=== PATIENT | male | born 1990 | race American Indian/Alaskan Native ===

== ENCOUNTER 2017-07-28 11:16 | Emergency (ER) | payer BC, OTHER ==
[2017-07-28 11:33] VITALS: BMI 36.7
[2017-07-28 11:38] VITALS: RESP 20; O2SAT 98
[2017-07-28 12:10] LABS: SQUAMOUS EPITHIAL 1 /hpf (0-5); URINE BILIRUBIN NEGATIVE (NEGATIVE); URINE BLOOD NEGATIVE (NEGATIVE); URINE CLARITY Clear (Clear); URINE COLOR Yellow (YELLOW); URINE GLUCOSE (UA) NORMAL (Normal); URINE LEUKOCYTE ESTERASE NEG Leu/uL (Negative); URINE NITRATE NEGATIVE (NEGATIVE); URINE PROTEIN NEGATIVE (NEGATIVE); URINE UROBILINOGEN NORMAL mg/dL (0.2-1.0)
[2017-07-28] MEDS ORDERED: Sodium Chloride 0.9% 1,000 ML IV ONE (12:13)
--- NOTE | 2017-07-28 12:15 | C.PDOC ---
History Of Present Illness 26 y/o male presents to ED with complaints of having a "stomach virus or flu". Patient states he started having symptoms of vomiting and diarrhea that began this morning at 4AM. Associated symptoms are bodyaches and lower back discomfort. Denies urinary symptoms, past medical problems or previous surgeries. Time Seen by Provider: 07/28/17 11:44 Chief Complaint (Nursing): Abdominal Pain History Per: Patient History/Exam Limitations: no limitations Onset/Duration Of Symptoms: Hrs Current Symptoms Are (Timing): Still Present Radiation Of Pain To:: Back (lower) Quality Of Discomfort: Unable To Describe Associated Symptoms: Vomiting, Diarrhea. denies: Fever, Chills, Urinary Symptoms Exacerbating Factors: None Alleviating Factors: None Recent travel outside of the [place]: No Past Medical History Reviewed: Historical Data, Nursing Documentation, Vital Signs Vital Signs: Last Vital Signs Temp 98 F 07/28/17 11:34 Pulse 90 07/28/17 11:34 Resp 20 07/28/17 11:34 BP 121/61 07/28/17 11:34 Pulse Ox 98 07/28/17 12:58 - Medical History PMH: No Chronic Diseases - [employer] Procedures INJECT/INFUSE NEC (07/06/14) Family History: States: Unknown Family Hx - Social History Hx Alcohol Use: No Hx Substance Use: No - Immunization History Hx Tetanus Toxoid Vaccination: No Hx Influenza Vaccination: No Hx Pneumococcal Vaccination: No Review Of Systems Constitutional: Negative for: Fever, Chills Gastrointestinal: Positive for: Vomiting, Diarrhea Genitourinary: Negative for: Dysuria, Frequency, Incontinence, Hematuria Musculoskeletal: Positive for: Other (bodyaches and lower back disomfort) Neurological: Negative for: Weakness, Numbness Physical Exam - Physical Exam Appears: Well, Non-toxic, No Acute Distress Skin: Normal Color, Warm, Dry, No Rash Head: Atraumatic, Normacephalic Eye(s): bilateral: Normal Inspection, PERRL, EOMI Oral Mucosa: Moist Throat: No Erythema, No Exudate Neck: Normal ROM, Supple Chest: Symmetrical, No Tenderness Cardiovascular: Rhythm Regular, No Friction Rub, No Murmur Respiratory: Normal Breath Sounds, No Decreased Breath Sounds, No Rales, No Rhonchi, No Wheezing Gastrointestinal/Abdominal: Bowel Sounds (active), Soft, No Tenderness, No Distention, No Guarding, No Rebound Back: Normal Inspection, No CVA Tenderness Extremity: Normal ROM, No Swelling Neurological/Psych: Oriented x3, Normal Speech, Normal Cognition, Normal Motor Gait: Steady ED Course And Treatment - Laboratory Results Result Diagrams: 07/28/17 12:20 07/28/17 12:20 O2 Sat by Pulse Oximetry: 98 (RA) Pulse Ox Interpretation: Normal - Other Rad Chest X-Ray X-Ray: Viewed By Me, Read By Radiologist Interpretation: Chest x-ray single frontal view. History: Abdominal pain. Comparison: None available. Findings: No focal infiltrate or effusion. Heart size within normal limits. Impression: No focal infiltrate or effusion. Progress Note: On re-exam, the patient reports improvement of symptoms. Lungs are CTA, heart is RRR, abdomen is soft, non-tender and tolerating PO well. Ambulatory in the ED with steady gait. Follow up with the medical doctor within 1-2 days. Return if worsened. Medical Decision Making Medical Decision Making: Ordered blood work, CXR, and urinalysis. Administered IV fluids, Zofran and pepcid. On re-exam, the patient reports improvement of symptoms. Lungs are CTA, heart is RRR, abdomen is soft, non-tender and tolerating PO well. Ambulatory in the ED with steady gait. Follow up with the medical doctor within 1-2 days. Return if worsened. Disposition Counseled Patient/Family Regarding: Studies Performed, Diagnosis, Rx Given - Disposition Referrals: [facility] [Outside] Disposition: HOME/ ROUTINE Disposition Time: 14:00 Condition: GOOD Additional Instructions: Follow up with the medical doctor within 1-2 days. Return if worsened. 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 - Scribe Statement The provider has reviewed the documentation as recorded by the Mely Bowers All medical record entries made by the Scribroyce were at my direction and personally dictated by me. I have reviewed the chart and agree that the record accurately reflects my personal performance of the history, physical exam, medical decision making, and the department course for this patient. I have also personally directed, reviewed, and agree with the discharge instructions and disposition.
[2017-07-28] MEDS ORDERED: Sodium Chloride 0.9% 1,000 ML ONE (12:22)
[2017-07-28 12:23] LABS: BASO # 0.1 K/uL (0.0-0.2); BASO % 0.6 % (0.0-2.0); EOS % 0.1 % (0.0-4.0); HEMOGLOBIN 14.5 g/dL (12.0-18.0); LYMPH # 0.3 K/uL (1.0-4.3); LYMPH % 3.3 % (20.0-40.0); MEAN CORPUSCULAR HGB CONC 33.3 g/dL (33.0-37.0); MEAN PLATELET VOLUME 9.3 fL (7.2-11.7); MONO # 0.3 K/uL (0.0-0.8); MONO % 2.9 % (0.0-10.0); NEUT # 9.5 K/uL (1.8-7.0); NEUT % 93.1 % (50.0-75.0); PLATELET COUNT 208 K/uL (130-400); RBC 5.37 Mil/uL (4.40-5.90); RED CELL DISTRIBUTION WIDTH 13.8 % (11.5-14.5); WHITE BLOOD COUNT 10.2 K/uL (4.8-10.8)
[2017-07-28 12:35] LABS: ALB/GLOB RATIO 1.2 (1.0-2.1); ALBUMIN 4.2 g/dL (3.5-5.0); ALT/SGPT 35 U/L (21-72); AST/SGOT 29 U/L (17-59); BLOOD UREA NITROGEN 12 mg/dL (9-20); CALCIUM 8.8 mg/dl (8.6-10.4); GFR AFRICAN-AMERICAN > 60; GFR NON-AFRICAN AMERICAN > 60; LIPASE 34 U/L (23-300)
--- NOTE | 2017-07-28 12:40 | RAD ---
Chest x-ray single frontal view History: Abdominal pain. Comparison: None available. Findings: No focal infiltrate or effusion. Heart size within normal limits. Impression: No focal infiltrate or effusion.
[2017-07-28 12:45] LABS: ANISOCYTOSIS SLIGHT; BANDS 2 % (0-2); LYMPHOCYTE 3 % (20-40); MONOCYTE 4 % (0-10); NEUTROPHIL 91 % (50-75); PLATELET ESTIMATE NORMAL (NORMAL); POLYCHROMIC SLIGHT; TOTAL CELLS COUNTED 100
[2017-07-28 12:46] LABS: LARGE PLATELETS PRESENT
[2017-07-28 14:34] VITALS: BP 112/70; PULSE 85; TEMP 98.9
== END 2017-07-28 14:34 | disposition home or self-care (01) ==
LOC: C.ER 11:16
DX: B34.9 Viral infection, unspecified (principal); R19.7 Diarrhea, unspecified; R11.10 Vomiting, unspecified
CPT/HCPCS: 71045; 80053; 81001; 83690; 85025; 96361; 96374; 96375; 99284; J2405; J7040

== ENCOUNTER 2017-10-21 13:20 | Emergency (ER) | payer BC ==
[2017-10-21 13:30] VITALS: BMI 36.5
[2017-10-21 13:31] VITALS: PULSE 96; RESP 18; TEMP 97.4; O2SAT 97
--- NOTE | 2017-10-21 14:13 | C.PDOC ---
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 UNABLE TO WT BEAR. CO SWELLING DENIES OTHER ASSOC INJURY EXAM NAD EXT R ANKLE +SWLEL LAT MALL W GEN TEND. AROM WO PAIN. NO GROSS DEFORM GAIT NO WT BEAR SKIN INTACT Time Seen by Provider: 10/21/17 13:56 Chief Complaint (Nursing): Lower Extremity Problem/Injury Past Medical History Vital Signs: Last Vital Signs Temp 97.4 F L 10/21/17 13:30 Pulse 96 H 10/21/17 13:30 Resp 18 10/21/17 13:30 BP Pulse Ox 97 10/21/17 14:44 - [facility] Procedures INJECT/INFUSE NEC (07/06/14) Family History: States: Unknown Family Hx - Social History Hx Alcohol Use: No Hx Substance Use: No - Immunization History Hx Tetanus Toxoid Vaccination: No Hx Influenza Vaccination: No Hx Pneumococcal Vaccination: No ED Course And Treatment O2 Sat by Pulse Oximetry: 97 Disposition Counseled Patient/Family Regarding: Studies Performed, Diagnosis, Need For Followup, Rx Given - Disposition Referrals: Mile Mcnamara DPM [Staff Provider] - Disposition: HOME/ ROUTINE Disposition Time: 14:43 Condition: IMPROVED Prescriptions: Ibuprofen [Motrin] 600 mg PO Q6 #30 tab Instructions: Ankle Sprain (DC) Forms: [facility] (Telugu), Work Excuse - Clinical Impression Clinical Impression: Ankle sprain Orthopedic Care Application Of:: Ankle Air Cast - Ambulation Aids Ambulation Aids: Adult Crutches
--- NOTE | 2017-10-21 14:25 | RAD ---
PROCEDURE: Right Ankle Radiographs. HISTORY: TRAUMA COMPARISON: None FINDINGS: BONES: Normal. No fracture. JOINTS: Normal. No osteoarthritis. Ankle mortise maintained. Talar dome intact SOFT TISSUES: Lateral soft tissue swelling. OTHER FINDINGS: None. IMPRESSION: No fracture/ dislocation. Lateral soft tissue swelling noted.
--- NOTE | 2017-10-21 14:25 | RAD ---
PROCEDURE: Right Foot Radiographs. HISTORY: trauma COMPARISON: None. FINDINGS: BONES: Normal. No fracture. JOINTS: Normal. SOFT TISSUES: Normal. OTHER FINDINGS: None. IMPRESSION: Normal right foot radiographs.
== END 2017-10-21 15:15 | disposition home or self-care (01) ==
LOC: C.ER 13:20
DX: S93.401A Sprain of unspecified ligament of right ankle, initial encounter (principal); X50.1XXA Overexertion from prolonged static or awkward postures, initial encounter; Y93.67 Activity, basketball
CPT/HCPCS: 73610; 73630; 97116; 97161; 99284; G8978; G8979; G8980

== ENCOUNTER 2017-10-25 10:23 | Emergency (ER) | payer BC ==
[2017-10-25 10:24] VITALS: BMI 36.5
[2017-10-25 10:31] VITALS: BP 139/77; PULSE 97; RESP 20; TEMP 97.8; O2SAT 97
--- NOTE | 2017-10-25 10:50 | C.PDOC ---
Time Seen by Provider: 10/25/17 10:43 Chief Complaint (Nursing): Lower Extremity Problem/Injury Past Medical History Vital Signs: Last Vital Signs Temp 97.8 F 10/25/17 10:30 Pulse 97 H 10/25/17 10:30 Resp 20 10/25/17 10:30 BP 139/77 10/25/17 10:30 Pulse Ox 97 10/25/17 10:30 - [facility] Procedures INJECT/INFUSE NEC (07/06/14) Family History: States: Unknown Family Hx - Social History Hx Alcohol Use: No Hx Substance Use: No - Immunization History Hx Tetanus Toxoid Vaccination: No Hx Influenza Vaccination: No Hx Pneumococcal Vaccination: No ED Course And Treatment O2 Sat by Pulse Oximetry: 97 Disposition Counseled Patient/Family Regarding: Diagnosis, Need For Followup - Disposition Referrals: [facility] [Outside] [facility] [Outside] Disposition: HOME/ ROUTINE Condition: GOOD Forms: [facility] (Hong Konger), General Discharge Instructions - Clinical Impression Clinical Impression: Encounter to obtain excuse from work
--- NOTE | 2017-10-25 10:52 | C.PDOC ---
History Of Present Illness 27-year-old male, presents to the emergency department requesting work note. He was seen in ER on 10/21 for ankle injury. Patient had negative XR's of foot and ankle. He was given a work excuse for three days, and returns today requesting additional days off. Patient was advised that the ER does not issue retroactive work notes, upon which patient started kicking material and objects in ER. He was noted to walk without difficulty. Patient states "fuck you, bitch. Go back to your country, suck my christopher." No other complaints. Time Seen by Provider: 10/25/17 10:43 Chief Complaint (Nursing): Lower Extremity Problem/Injury History Per: Patient History/Exam Limitations: no limitations Past Medical History Reviewed: Historical Data, Nursing Documentation, Vital Signs Vital Signs: Last Vital Signs Temp 97.8 F 10/25/17 10:30 Pulse 97 H 10/25/17 10:30 Resp 20 10/25/17 10:30 BP 139/77 10/25/17 10:30 Pulse Ox 97 10/25/17 11:02 - [employer] Procedures INJECT/INFUSE NEC (07/06/14) Family History: States: No Known Family Hx - Social History Hx Alcohol Use: No Hx Substance Use: No - Immunization History Hx Tetanus Toxoid Vaccination: No Hx Influenza Vaccination: No Hx Pneumococcal Vaccination: No Review Of Systems Constitutional: Positive for: Other (requesting work note.) Physical Exam - Physical Exam Appears: Non-toxic, No Acute Distress, Other (Beligerint.) Neurological/Psych: Oriented x3, Normal Speech Gait: Steady (without difficulty) ED Course And Treatment O2 Sat by Pulse Oximetry: 97 (RA) Pulse Ox Interpretation: Normal Medical Decision Making Medical Decision Making: Prior Visits Notes and records from previous visits were reviewed. Patient evaluated in ED on 10/21 s/p ankle injury. Had negative XR's. was discharged with work note. Disposition Counseled Patient/Family Regarding: Studies Performed, Diagnosis - Disposition Referrals: [facility] [Outside] [facility] [Outside] Disposition: HOME/ ROUTINE Disposition Time: 10:55 Condition: GOOD Forms: General Discharge Instructions, [facility] (Mauritian) - Clinical Impression Clinical Impression: Encounter to obtain excuse from work - Scribe Statement The provider has reviewed the documentation as recorded by the Scribe (Whit Carcamo) All medical record entries made by the Scribe were at my direction and personally dictated by me. I have reviewed the chart and agree that the record accurately reflects my personal performance of the history, physical exam, medical decision making, and the department course for this patient. I have also personally directed, reviewed, and agree with the discharge instructions and disposition.
== END 2017-10-25 10:55 | disposition home or self-care (01) ==
LOC: C.ER 10:23
DX: Z04.8 Encounter for examination and observation for other specified reasons (principal)

== ENCOUNTER 2018-02-06 23:44 | Emergency (ER) | payer BC ==
[2018-02-06 23:45] VITALS: BMI 36.5
[2018-02-07] MEDS ORDERED: Sodium Chloride 0.9% 1,000 ML IV STA (00:37)
[2018-02-07 00:48] LABS: BASO # 0.1 K/uL (0.0-0.2); BASO % 0.7 % (0.0-2.0); EOS # 0.1 K/uL (0.0-0.7); EOS % 0.8 % (0.0-4.0); HEMOGLOBIN 13.2 g/dL (12.0-18.0); LYMPH # 2.2 K/uL (1.0-4.3); LYMPH % 25.3 % (20.0-40.0); MEAN CELL VOLUME 80.4 fL (80.0-94.0); MEAN CORPUSCULAR HGB CONC 33.6 g/dL (33.0-37.0); MEAN PLATELET VOLUME 8.7 fL (7.2-11.7); MONO # 0.4 K/uL (0.0-0.8); MONO % 4.9 % (0.0-10.0); NEUT # 5.9 K/uL (1.8-7.0); NEUT % 68.3 % (50.0-75.0); RBC 4.89 Mil/uL (4.40-5.90); WHITE BLOOD COUNT 8.6 K/uL (4.8-10.8)
[2018-02-07] MEDS ORDERED: Sodium Chloride 0.9% 1,000 ML ONE (00:48)
[2018-02-07 01:20] LABS: ALB/GLOB RATIO 1.5 (1.0-2.1); ALBUMIN 4.3 g/dL (3.5-5.0); ALT/SGPT 33 U/L (21-72); AST/SGOT 21 U/L (17-59); BLOOD UREA NITROGEN 15 mg/dL (9-20); CALCIUM 9.4 mg/dl (8.6-10.4); GFR AFRICAN-AMERICAN > 60; GFR NON-AFRICAN AMERICAN > 60
[2018-02-07] MEDS ORDERED: Iodixanol 320 MG/ML 100 ML BOTTLE IV ONE (01:49)
--- NOTE | 2018-02-07 02:52 | C.PDOC ---
History Of Present Illness 27 year old male presents to the ED for evaluation of right-sided throat pain which began around one month ago. Patient reports he has pain with swallowing and even with movement of his tongue. When asked where his pain is, patient points to the right side of his neck. Patient denies fever, chills, ear pain, throat swelling, difficulty swallowing/breathing. Time Seen by Provider: 02/07/18 00:34 Chief Complaint (Nursing): ENT Problem History Per: Patient History/Exam Limitations: None Onset/Duration Of Symptoms: Days (1 month ) Current Symptoms Are (Timing): Still Present Past Medical History Reviewed: Historical Data, Nursing Documentation, Vital Signs Vital Signs: Last Vital Signs Temp 97.7 F 02/07/18 02:55 Pulse 69 02/07/18 02:55 Resp 18 02/07/18 02:55 BP 114/70 02/07/18 02:55 Pulse Ox 97 02/07/18 03:29 - Medical History PMH: No Chronic Diseases Surgical History: No Surg Hx - [facility] Procedures INJECT/INFUSE NEC (07/06/14) Family History: States: Unknown Family Hx - Social History Hx Alcohol Use: No Hx Substance Use: No - Immunization History Hx Tetanus Toxoid Vaccination: No Hx Influenza Vaccination: No Hx Pneumococcal Vaccination: No Review Of Systems Constitutional: Negative for: Fever, Chills ENT: Positive for: Throat Pain (right-sided). Negative for: Ear Pain, Throat Swelling Physical Exam - Physical Exam Appears: Non-toxic, No Acute Distress Skin: Normal Color, Warm, Dry Head: Atraumatic, Normacephalic Eye(s): bilateral: Normal Inspection Ear(s): Bilateral: Normal Nose: Normal, No Discharge Oral Mucosa: Moist Throat: Normal, No Erythema, No Exudate, No Drooling, No Other (swelling ) Neck: Supple, Other (right-sided neck tenderness ) Chest: Symmetrical, No Deformity, No Tenderness Cardiovascular: Rhythm Regular, No Murmur Respiratory: Normal Breath Sounds, No Rales, No Rhonchi, No Wheezing Extremity: Normal ROM Neurological/Psych: Oriented x3, No Normal Speech (limited tongue movement secondary to pain ), Normal Cognition ED Course And Treatment - Laboratory Results Result Diagrams: 02/07/18 00:45 02/07/18 00:45 O2 Sat by Pulse Oximetry: 97 (on RA) Pulse Ox Interpretation: Normal - CT Scan/US CT Neck Soft Tissue Other Rad Studies (CT/US): Read By Radiologist, Radiology Report Reviewed CT/US Interpretation: EXAM: CT Neck With Intravenous Contrast. CLINICAL HISTORY : 27 years old, male; Pain and signs and symptoms; Dysphagia / difficulty. swallowing and other: Right side pain and swelling; Painful swallowing; Additional info: Right anterior. neck pain, difficulty swallow. TECHNIQUE: Axial computed tomography images of the neck with intravenous contrast. All CT. scans at this facility use at least one of these dose optimization techniques : automated exposure. control; mA and/or kV adjustment per patient size ( includes targeted exams where dose is matched to. clinical indication); or iterative reconstruction. Coronal and sagittal reformatted images were created. and reviewed. COMPARISON: No relevant prior studies available. FINDINGS: Oropharynx: The palatine tonsils are mildly prominent in size. No peritonsillar abscess. Hypopharynx: Unremarkable. Larynx: Unremarkable. Normal epiglottis. Trachea: Unremarkable. Retropharyngeal space: Unremarkable. Submandibular/ parotid glands: Unremarkable. Glands are normal in size. Thyroid: Unremarkable. No enlarged or calcified nodules. Bones/joints: No acute fracture. Soft tissues: Unremarkable. Vasculature: No acute findings. Lymph nodes: There are few mildly prominent anterior cervical chain lymph nodes which may be. reactive nodes. Lung apices: Unremarkable as visualized. IMPRESSION: 1. The palatine tonsils are mildly prominent in size. No peritonsillar abscess. 2. There are few mildly prominent anterior cervical chain lymph nodes which may be reactive nodes. Progress Note: Bloodwork and CT Neck Soft Tissue ordered and reviewed. Toradol IVP and IV Fluids given. Disposition - Disposition Referrals: Gorge Giron MD [Staff Provider] - Disposition: HOME/ ROUTINE Disposition Time: 03:26 Condition: STABLE Additional Instructions: Follow up with PMD and Orthopedist within 1-2 days. Return to ED if feel worse. 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 - Scribe Statement The provider has reviewed the documentation as recorded by the Scribe (Grace Medeiros) All medical record entries made by the Scribe were at my direction and personally dictated by me. I have reviewed the chart and agree that the record accurately reflects my personal performance of the history, physical exam, medical decision making, and the department course for this patient. I have also personally directed, reviewed, and agree with the discharge instructions and disposition.
[2018-02-07 02:55] VITALS: BP 114/70; PULSE 69; RESP 18; TEMP 97.7
[2018-02-07] MEDS ORDERED: Amoxicillin-Clav 875-125 mg Tab PO STA (03:08)
[2018-02-07] MEDS ORDERED: Amoxicillin-Clav 875-125 mg Tab PO ONE (03:19)
[2018-02-07 03:29] VITALS: O2SAT 97
--- NOTE | 2018-02-07 09:21 | CT ---
Date of service: 02/07/2018 PROCEDURE: CT NECK WITH CONTRAST HISTORY: right anterior neck pain, difficulty swallow COMPARISON: None available. TECHNIQUE: CT of the neck with intravenous contrast. Coronal and sagittal reformats generated. Intravenous contrast dose: 100 mL Visipaque Radiation dose: DLP 522.44 mGy-cm This CT exam was performed using one or more of the following dose reduction techniques: Automated exposure control, adjustment of the mA and/or kV according to patient size, and/or use of iterative reconstruction technique. FINDINGS: NASOPHARYNX: There is moderate adenoidal hypertrophy with mild narrowing of the nasopharyngeal airway. SUPRAHYOID NECK: There are bilateral enlarged palatine tonsils. No evidence for peritonsillar abscess. There is no mass or abnormal enhancement in the oropharynx, oral cavity, parapharyngeal space and retropharyngeal space. INFRAHYOID NECK: Unremarkable larynx, hypopharynx, and supraglottic space. Vocal cords intact. MASS: None. GLANDS: Parotid and submandibular glands unremarkable. Normal size thyroid gland, without nodule. LYMPH NODES: Mildly enlarged right cervical chain lymph nodes, likely reactive. CERVICAL SPINE: No fracture or focal lesion. Within normal limits for the patient's age. VASCULAR STRUCTURES: There is normal intravascular enhancement. OTHER FINDINGS: None. IMPRESSION: Findings are most compatible with acute palatine tonsillitis. No evidence for peritonsillar abscess. Moderate adenoidal hypertrophy with mild narrowing of the nasopharyngeal airway. A preliminary report was provided by [employer].
== END 2018-02-07 03:46 | disposition home or self-care (01) ==
LOC: C.ER 23:44
DX: J02.9 Acute pharyngitis, unspecified (principal); I88.9 Nonspecific lymphadenitis, unspecified
CPT/HCPCS: 70491; 80053; 85025; 96361; 96374; 96375; 99284; J1100; J1885; J7030; Q9967

== ENCOUNTER 2018-06-28 19:50 | Emergency (ER) | payer BC ==
[2018-06-28 19:51] VITALS: BMI 36.5
[2018-06-28 20:06] VITALS: BP 120/73; PULSE 92; TEMP 98.3; O2SAT 97
--- NOTE | 2018-06-28 20:36 | C.PDOC ---
History Of Present Illness 27 y/o male c/o body aches, chills, nausea, vomiting and diarrhea today with fatigue, and generalized weakness. +sick contact; 3 y/o daughter with similar symptoms now resolved. no flu vaccine. HPI: Influenza Time Seen by Provider: 06/28/18 20:09 Chief Complaint: Flu-like Symptoms History Per: Patient Exam Limitations: no limitations Have you had recent travel within the past 21 days to any of the following countries: [place], [place], [place] or [place]?: No Onset/Duration Of Symptoms: Days (1) Symptoms include: bodyaches, vomiting, diarrhea. denies: cough, difficulty breathing, rash Sick Contacts (Context): Family Member(s) Hx Influenza Vaccination: No Risk factors for flu complications: No: adult > 65 years, chronic lung disease Past Medical History Reviewed: Historical Data, Nursing Documentation, Vital Signs Vital Signs: Last Vital Signs Temp 98.3 F 06/28/18 20:03 Pulse 92 H 06/28/18 20:03 Resp 14 06/28/18 20:03 BP 120/73 06/28/18 20:03 Pulse Ox 97 06/28/18 20:03 - Medical History PMH: No Chronic Diseases Surgical History: No Surg Hx - [facility] Procedures INJECT/INFUSE NEC (07/06/14) Family History: States: Unknown Family Hx - Social History Hx Alcohol Use: No Hx Substance Use: No - Immunization History Hx Tetanus Toxoid Vaccination: No Hx Influenza Vaccination: No Hx Pneumococcal Vaccination: No Review Of Systems Constitutional: Positive for: Chills. Negative for: Fever ENT: Negative for: Ear Pain, Throat Pain Cardiovascular: Negative for: Chest Pain Respiratory: Negative for: Cough Gastrointestinal: Positive for: Nausea, Vomiting, Diarrhea. Negative for: Abdominal Pain Musculoskeletal: Negative for: Neck Pain Skin: Negative for: Rash Neurological: Negative for: Weakness, Numbness Physical Exam - Physical Exam Appears: Non-toxic, No Acute Distress, Other (uncomfortable appearing) Skin: Warm, Dry Head: Atraumatic Eye(s): bilateral: Normal Inspection Ear(s): Bilateral: Normal Nose: No Discharge Oral Mucosa: Dry (mild) Throat: No Erythema, No Exudate Neck: Supple Cardiovascular: Rhythm Regular, No Murmur Respiratory: No Decreased Breath Sounds, No Rales, No Rhonchi, No Wheezing Gastrointestinal/Abdominal: Bowel Sounds, Soft, No Tenderness, No Guarding, No Rebound Neurological/Psych: Oriented x3, Normal Speech, Normal Cognition Medical Decision Making Medical Decision Makin27 y/o healthy male with gastroenteritis/flulike symptoms x 1 day. flu neg. given zofran odt and now tolerates po. 2128 pt feeling better. tolerates po. will d/c with zofran and tylenol - ECG O2 Sat by Pulse Oximetry: 97 Disposition Counseled Patient/Family Regarding: Diagnosis, Need For Followup, Rx Given - Disposition Disposition: HOME/ ROUTINE Disposition Time: 21:41 Condition: IMPROVED Additional Instructions: Drink fluids in small amounts at a time. Eat bland foods like toast, crackers, soups, plain rice. Take ondansetron before meals. Increase rest. Follow upwith your doctor in 1=-2 days/ Return to ER for persistent vomiting, or any other concerns. Prescriptions: Acetaminophen [Tylenol 325mg tab] 650 mg PO Q6 #30 tab Ondansetron ODT [Zofran ODT] 4 mg PO TID #12 odt Instructions: Viral Gastroenteritis, Adult (DC) Forms: [facility] (Cay[place] Islander), General Discharge Instructions, Work Excuse - Clinical Impression Clinical Impression: Gastroenteritis
[2018-06-28 22:02] VITALS: RESP 20
== END 2018-06-28 22:01 | disposition home or self-care (01) ==
LOC: C.ER 19:50
DX: K52.9 Noninfective gastroenteritis and colitis, unspecified (principal)
CPT/HCPCS: 87804; 96372; 99285; J1885